=== PATIENT | male | born 1955 | race Caucasian/White ===

== ENCOUNTER 2020-02-01 20:24 | Emergency (ER) | payer SELFPAY ==
--- NOTE | 2020-02-01 20:41 | ED.PDOC ---
History of Present Illness - General Chief Complaint: Respiratory Problem Stated Complaint: coughing, vomiting, short of breath Time Seen by Provider: 02/01/20 20:41 - History of Present Illness Initial Comments: 64 yo M PMH COPD and partial right lobectomy presents to ED in police custody for public intoxication alcohol on breath. Reports cough and sob while in police custody. NAD not hypoxic admits smoking and drinking. has no PMD. One episode nausea vomiting no blood in custody. Offers no other c/o today. PPE worn-N95 surgical mask with attached face shield over N95 goggles gloves and face shield over that Allergies/Adverse Reactions: Allergies NO KNOWN ALLERGY Allergy (Verified 02/01/20 20:49) Review of Systems - Review of Systems Constitutional: States: see HPI EENTM: States: see HPI Respiratory: States: see HPI Cardiology: States: see HPI Gastrointestinal/Abdominal: States: see HPI Genitourinary: States: see HPI Musculoskeletal: States: see HPI Skin: States: see HPI Neurological: States: see HPI Endocrine: States: see HPI All other Systems: Reviewed and Negative Family Medical History - Family History Father Family History: Unknown Physical Exam - Physical Exam General Appearance: No apparent distress, Unkempt Eye Exam: bilateral normal Ears, Nose, Throat: normal ENT inspection Neck: non-tender, full range of motion Respiratory: decreased breath sounds, other - diminished on right but moving air well otherwise Cardiovascular/Chest: regular rate, rhythm, tachycardia Gastrointestinal/Abdominal: non tender, soft Rectal Exam: deferred Back Exam: normal inspection Extremity: normal range of motion, non-tender Neurologic: no motor/sensory deficits Skin Exam: normal color Progress - Progress Progress: 02/01/20 20:57 A/P-COPD, Alcohol Intoxication-iv bolus banana bag cbc cmp lipase trop etoh level reassess decadron albuterol - Results/Orders Results/Orders: EKG-non specific TW changes No STEMI Laboratory Tests 02/01/20 02/01/20 02/01/20 20:56 20:56 20:56 WBC 10.8 RBC 5.15 Hgb 16.7 Hct 47.6 MCV 92.4 MCH 32.4 H MCHC 35.1 RDW 15.2 H Plt Count 335 MPV 9.4 Absolute Neuts (auto) 5.20 Absolute Lymphs (auto) 3.90 H Absolute Monos (auto) 1.40 H Absolute Eos (auto) 0.10 Absolute Basos (auto) 0.10 Neutrophils % 48.5 Lymphocytes % 36.4 Monocytes % 12.7 H Eosinophils % 1.1 Basophils % 1.3 Sodium 142 Potassium 3.7 Chloride 106 Carbon Dioxide 26 Anion Gap 13.7 BUN 16 Creatinine 0.96 BUN/Creatinine Ratio 16.7 Random Glucose 116 H Serum Osmolality 285.3 Calcium 9.0 Total Bilirubin 0.5 AST 28 ALT 27 Alkaline Phosphatase 85 Troponin I < 0.02 Serum Total Protein 7.8 Albumin 4.5 Globulin 3.3 Albumin/Globulin Ratio 1.4 Lipase 32 Ethyl Alcohol 02/01/20 20:56 WBC RBC Hgb Hct MCV MCH MCHC RDW Plt Count MPV Absolute Neuts (auto) Absolute Lymphs (auto) Absolute Monos (auto) Absolute Eos (auto) Absolute Basos (auto) Neutrophils % Lymphocytes % Monocytes % Eosinophils % Basophils % Sodium Potassium Chloride Carbon Dioxide Anion Gap BUN Creatinine BUN/Creatinine Ratio Random Glucose Serum Osmolality Calcium Total Bilirubin AST ALT Alkaline Phosphatase Troponin I Serum Total Protein Albumin Globulin Albumin/Globulin Ratio Lipase Ethyl Alcohol 230.60 H* EXAM DESCRIPTION: XR Chest, 1 View CLINICAL HISTORY: 64 years Male COPD TECHNIQUE: One view of the chest. COMPARISON: No prior exams provided for comparison. FINDINGS: The lungs are mildly hyperlucent and hyperinflated. Blunting of the right costophrenic angle could reflect scarring or trace pleural effusion. No focal airspace consolidation. No pneumothorax. The cardiomediastinal silhouette and central pulmonary vasculature are normal. No acute osseous abnormalities. IMPRESSION: Chronic obstructive pulmonary disease. Scarring at the right lung base vs. trace right pleural effusion. Electronically signed by: Lyric Quan MD 02/01/2020 9:31 PM CDT - [id number] Departure - Departure Clinical Impression: COPD (chronic obstructive pulmonary disease) Qualifiers: COPD type: unspecified COPD Qualified Code(s): J44.9 - Chronic obstructive pulmonary disease, unspecified Alcohol intoxication Qualifiers: Complication of substance-induced condition: uncomplicated Qualified Code(s): F10.920 - Alcohol use, unspecified with intoxication, uncomplicated Disposition: Assisted Condition: Good Departure Forms: ED Discharge - Pt. Copy, Patient Portal Self Enrollment
[2020-02-01 20:44] VITALS: TEMP 97.5
[2020-02-01] MEDS ORDERED: DEXAMETHASONE INJ 10 MG/ML VIAL IV ONE (20:44)
[2020-02-01] MEDS ORDERED: SODIUM CHLORIDE 0.9% 1000ML 1,000 ML IVS ONE (20:59)
[2020-02-01] MEDS ORDERED: ALBUTEROL INHALER 64 PUFF/8GM INH SCH (21:00)
[2020-02-01] MEDS ORDERED: MULTIPLE VITAMIN INJ 10 ML, THIAMINE HCL INJ 100 MG in SODIUM CHLORIDE 0.9% 1000ML 1,00... IVS ONE (21:01)
[2020-02-01 21:05] VITALS: O2SAT 94
--- NOTE | 2020-02-01 21:33 | RAD ---
EXAM DESCRIPTION: XR Chest, 1 View CLINICAL HISTORY: 64 years Male COPD TECHNIQUE: One view of the chest. COMPARISON: No prior exams provided for comparison. FINDINGS: The lungs are mildly hyperlucent and hyperinflated. Blunting of the right costophrenic angle could reflect scarring or trace pleural effusion. No focal airspace consolidation. No pneumothorax. The cardiomediastinal silhouette and central pulmonary vasculature are normal. No acute osseous abnormalities. IMPRESSION: Chronic obstructive pulmonary disease. Scarring at the right lung base vs. trace right pleural effusion. Electronically signed by: Lyric Quan MD 02/01/2020 9:31 PM CDT
[2020-02-01 22:06] VITALS: BP 146/90
== END 2020-02-01 21:55 ==
LOC: ER 20:24
DX: J44.9 Chronic obstructive pulmonary disease, unspecified (principal); F10.129 Alcohol abuse with intoxication, unspecified; R11.2 Nausea with vomiting, unspecified; F17.200 Nicotine dependence, unspecified, uncomplicated
CPT/HCPCS: 36415; 71045; 80053; 80320; 83690; 84484; 85025; 93005; 94664; J1100; J3411; J7030